=== PATIENT | male | born 1945 | race Native Hawaiian/Other Pacific Islander ===

== ENCOUNTER 2016-09-21 15:16 | Outpatient (CLI) | payer OTHER ==
[~2016-09-21 15:16] MED LIST: ASPIR-8181 MG PO; IBUPROFEN IB200 MG PO; LIPITOR10 MG PO
[2016-09-21 16:40] LABS: POTASSIUM 4.6 mmol/L (3.6-5.2); SODIUM 139 mmol/L (136-145)
[2016-09-21 16:58] LABS: PLATELET COUNT 296 K/uL (142-355)
== END 2016-09-21 16:20 | disposition home or self-care (01) ==
LOC: LAB 15:16
PROVIDERS: Nurse Practitioner Family
DX: Z00.00 Encounter for general adult medical examination without abnormal findings (principal); E78.00 Pure hypercholesterolemia, unspecified; K21.9 Gastro-esophageal reflux disease without esophagitis; M54.5 Low back pain; I25.10 Atherosclerotic heart disease of native coronary artery without angina pectoris; N40.0 Benign prostatic hyperplasia without lower urinary tract symptoms; Z79.899 Other long term (current) drug therapy; Z51.81 Encounter for therapeutic drug level monitoring; E55.9 Vitamin D deficiency, unspecified
CPT/HCPCS: 80053; 80061; 82306; 82607; 83036; 84154; 84436; 84443; 85027

== ENCOUNTER 2018-01-25 16:56 | Emergency (ER) | payer OTHER ==
[~2018-01-25] VITALS: Ht 172.7 cm; Wt 93.0 kg
[2018-01-25 17:33] LABS: PLATELET COUNT 338 K/uL (142-355)
[2018-01-25 17:38] LABS: POTASSIUM 3.9 mmol/L (3.6-5.2)
[2018-01-25 19:33] VITALS: BP 143/59; TEMP 97.9
== END 2018-01-25 19:33 | disposition home or self-care (01) ==
LOC: ED 16:56
PROVIDERS: Emergency Medicine
DX: N20.0 Calculus of kidney (principal); D72.829 Elevated white blood cell count, unspecified; T38.0X5A Adverse effect of glucocorticoids and synthetic analogues, initial encounter
CPT/HCPCS: 36415; 80053; 81000; 85027; 96365; 96374; 99284; J0696; J1885

== ENCOUNTER 2019-11-13 11:14 | Outpatient (CLI) | payer OTHER ==
[2019-11-13 11:58] LABS: PLATELET COUNT 287 K/uL (142-355)
== END 2019-11-13 23:23 | disposition home or self-care (01) ==
LOC: LABW 11:14
PROVIDERS: Internal Medicine
DX: I73.89 Other specified peripheral vascular diseases (principal); M79.605 Pain in left leg; Z79.899 Other long term (current) drug therapy; I25.10 Atherosclerotic heart disease of native coronary artery without angina pectoris
CPT/HCPCS: 36415; 80053; 80061; 81000; 84439; 84443; 85027; 85379

== ENCOUNTER 2019-11-26 08:41 | Outpatient (CLI) | payer OTHER | END 2019-11-26 20:26 | disposition home or self-care (01) | LOC: US 08:41 | DX: I73.89 Other specified peripheral vascular diseases (principal) ==

== ENCOUNTER 2020-11-28 06:07 | Outpatient (CLI) | payer OTHER ==
[2020-11-28 06:41] LABS: PLATELET COUNT 273 K/uL (142-355)
[2020-11-28 07:45] LABS: POTASSIUM 4.4 mmol/L (3.6-5.2)
== END 2020-11-28 19:03 | disposition home or self-care (01) ==
LOC: LABW 06:07
PROVIDERS: ATTEND Internal Medicine
DX: N18.2 Chronic kidney disease, stage 2 (mild) (principal)
CPT/HCPCS: 36415; 80053; 81000; 82043; 82306; 83735; 83970; 84100; 85027

== ENCOUNTER 2021-01-30 08:42 | Outpatient (CLI) | payer OTHER | END 2021-01-30 19:00 | disposition home or self-care (01) | LOC: CT 08:42 | PROVIDERS: ATTEND Internal Medicine | DX: R22.1 Localized swelling, mass and lump, neck (principal) | CPT/HCPCS: 36415; 82565; 84520; Q9963 ==

== ENCOUNTER 2021-05-18 05:40 | Outpatient (CLI) | payer OTHER ==
[2021-05-18 06:10] LABS: PLATELET COUNT 282 K/uL (142-355)
[2021-05-18 06:17] LABS: POTASSIUM 4.1 mmol/L (3.6-5.2)
== END 2021-05-18 18:55 | disposition home or self-care (01) ==
LOC: LABW 05:40
PROVIDERS: ATTEND Internal Medicine
DX: N18.2 Chronic kidney disease, stage 2 (mild) (principal)
CPT/HCPCS: 36415; 80053; 81000; 82043; 82306; 83735; 83970; 84100; 85027

== ENCOUNTER 2021-06-04 13:31 | Outpatient (CLI) | payer OTHER | END 2021-06-04 19:56 | disposition home or self-care (01) | LOC: US 13:31 | PROVIDERS: ATTEND Surgery | DX: I73.9 Peripheral vascular disease, unspecified (principal) ==

== ENCOUNTER 2021-10-14 06:55 | Outpatient (CLI) | payer OTHER ==
[2021-10-14 07:22] LABS: PLATELET COUNT 265 K/uL (142-355)
[2021-10-14 09:12] LABS: POTASSIUM 3.7 mmol/L (3.6-5.2)
== END 2021-10-14 18:55 | disposition home or self-care (01) ==
LOC: LABW 06:55
PROVIDERS: ATTEND Internal Medicine
DX: N18.2 Chronic kidney disease, stage 2 (mild) (principal)
CPT/HCPCS: 36415; 80053; 81002; 81015; 82043; 82306; 83735; 83970; 84100; 85027

== ENCOUNTER 2021-11-06 07:59 | Outpatient (CLI) | payer OTHER | END 2021-11-06 21:34 | disposition home or self-care (01) | LOC: CT 07:59 | PROVIDERS: ATTEND Surgery | DX: I73.9 Peripheral vascular disease, unspecified (principal) | CPT/HCPCS: 36415; 82565; 84520 ==

== ENCOUNTER 2022-04-15 03:40 | Outpatient (CLI) | payer OTHER ==
[2022-04-15 04:09] LABS: PLATELET COUNT 273 K/uL (142-355)
[2022-04-15 04:24] LABS: POTASSIUM 4.2 mmol/L (3.6-5.2)
== END 2022-04-15 19:22 | disposition home or self-care (01) ==
LOC: LABW 03:40
PROVIDERS: ATTEND Internal Medicine
DX: N18.2 Chronic kidney disease, stage 2 (mild) (principal); R73.03 Prediabetes
CPT/HCPCS: 36415; 80053; 81002; 82043; 82306; 83036; 83735; 83970; 84100; 84439; 84443; 85027

== ENCOUNTER 2022-09-22 04:28 | Outpatient (CLI) | payer OTHER ==
[2022-09-22 05:09] LABS: PLATELET COUNT 290 K/uL (142-355)
[2022-09-22 05:30] LABS: POTASSIUM 4.5 mmol/L (3.6-5.2)
== END 2022-09-22 22:02 | disposition home or self-care (01) ==
LOC: LAB 04:28
PROVIDERS: ATTEND Internal Medicine
DX: N18.2 Chronic kidney disease, stage 2 (mild) (principal); R73.03 Prediabetes; E55.9 Vitamin D deficiency, unspecified
CPT/HCPCS: 36415; 80053; 81002; 82043; 82306; 83036; 83735; 83970; 84100; 84439; 84443; 85027